=== PATIENT | female | born 1995 | race African-American/Black ===

== ENCOUNTER 2023-09-30 09:01 | Emergency (ER) | payer MEDICAID ==
[~2023-09-30] VITALS: Ht 165.1 cm; Wt 48.0 kg
[2023-09-30 09:08] VITALS: O2SAT 99
[2023-09-30] MEDS ORDERED: IBUP-2029 MT (10:17)
[2023-09-30] MEDS ORDERED: METH-653 MT (10:17)
[2023-09-30] MEDS: IBUPROFEN 600MG TABLET PO ONE (10:52)
[2023-09-30 12:49] VITALS: BP 94/53; PULSE 76; RESP 14; TEMP 98.1
== END 2023-09-30 13:03 | disposition home or self-care (01) ==
LOC: ER 09:01
DX: S92.351A Displaced fracture of fifth metatarsal bone, right foot, initial encounter for closed fracture (principal); V98.8XXA Other specified transport accidents, initial encounter; Y93.89 Activity, other specified; Y92.89 Other specified places as the place of occurrence of the external cause; Y99.8 Other external cause status
CPT/HCPCS: 73130; 73610; 73630; 29515; 99284; Z7610